=== PATIENT | female | born 1950 | race Two or more races ===

== ENCOUNTER 2016-07-23 23:57 | Emergency (ER) | payer OTHER ==
[2016-07-24] MEDS ORDERED: FAMOTIDINE 20 MG/2 ML SDV ONE (00:01)
[2016-07-24] MEDS ORDERED: predniSONE 20 MG TAB PO ONE (00:10)
[2016-07-24] MEDS ORDERED: FAMOTIDINE 20 MG/2 ML SDV IVP ONE (00:10)
[2016-07-24] MEDS ORDERED: predniSONE 20 MG TAB ONE (00:11)
--- NOTE | 2016-07-24 00:21 | EDPHY ---
H & P Stated Complaint: swelling of lower lip/tongue, throat feels constricted - Medical/Surgical History Hx Asthma: No Hx Chronic Respiratory Disease: No Hx Diabetes: No Hx Cardiac Disease: Yes Hx Renal Disease: No Hx Cirrhosis: No Hx Alcoholism: No Hx HIV/AIDS: No Hx Splenectomy or Spleen Trauma: No Other PMH: PMHx: HTN. PSHx: - Social History Smoking Status: Never smoked Time Seen by Provider: 07/24/16 00:03 HPI/ROS: Chief complaint: Swelling of the face and throat History of present illness: This is a 66-year-old female who presents to the emergency department with family for evaluation of swelling of the face and throat. Patient had the onset of symptoms earlier this evening. She feels the face and in the throat started swell up. She is feeling like she is having trouble breathing. Patient denies any specific precipitating factors. She does not have a history of severe allergic reactions. No associated signs or symptoms including no fevers, no cold symptoms, no rashes. Review of systems: A 10 point review of systems was obtained and other than described above was negative (Andrew Avery) - Physical Exam Exam: General Appearance: Alert, no distress. Eyes: Pupils equal and round no pallor or injection. ENT, Mouth: Mucous membranes moist. Mild edema to the mouth and throat. No hoarseness, no drooling, no trismus, no stridor. Respiratory: There are no retractions, lungs are clear to auscultation. Cardiovascular: Regular rate and rhythm. Gastrointestinal: Abdomen is soft and nontender, no masses, bowel sounds normal. Neurological: Alert. Strength and sensation intact and symmetrical. Skin: Edema to the face most pronounced around the lips. No rashes. Musculoskeletal: Neck is supple nontender. Extremities are symmetrical, full range of motion. Psychiatric: Patient is oriented X 3, there is no agitation. (Andrew Avery) Constitutional: Initial Vital Signs Heart Rate 74 07/24/16 00:03 Respiratory Rate 16 07/24/16 00:03 Blood Pressure 185/96 H 07/24/16 00:03 O2 Sat (%) 96 07/24/16 00:03 O2 Delivery Mode Room Air Allergies/Adverse Reactions: No Known Allergies Allergy (Unverified 08/05/15 20:07) Home Medications: Medication Instructions Recorded Amiodarone HCl 08/05/15 Atenolol 08/05/15 Losartan Potassium 08/05/15 Doxazosin Mesylate 2 mg PO DAILY #30 tablet 07/24/16 predniSONE 40 mg PO DAILY 4 Days 07/24/16 Medical Decision Making Other Provider: PHYSICIAN DOCUMENTATION: The patient was evaluated and managed by the Physician Brazer Crawler Torch. My co- signature indicates that I have reviewed this chart and I agree with the findings and plan of care as documented. I am the secondary supervising physician. 1:30 a.m.- I reassessed the patient. She is doing well, her symptoms are improving. I have advised her to stop taking her Omer inhibitor. She will be discharged from the emergency room. She would like a refill of another blood pressure medication and I am happy to provide this for her. (Marisa Brush) - Data Points Medications Given: Discontinued Medications Diphenhydramine HCl (Benadryl Injection) 50 mg IVP EDNOW ONE Stop: 07/24/16 00:11 Last Admin: 07/24/16 00:17 Dose: 50 mg Famotidine (Pepcid) 20 mg IVP EDNOW ONE Stop: 07/24/16 00:11 Last Admin: 07/24/16 00:17 Dose: 20 mg Prednisone (Prednisone) 60 mg PO EDNOW ONE Stop: 07/24/16 00:11 Last Admin: 07/24/16 00:17 Dose: 60 mg Departure - Departure Disposition: Home, Routine, Self-Care Clinical Impression: Angioedema Condition: Good Instructions: Angioedema (ED) Additional Instructions: Please discontinue the use of captopril and talk with your doctor about starting a new medication when you return home If symptoms worsen or new symptoms develop return to the emergency room for recheck Referrals: NONE *PRIMARY CARE P,. [Primary Care Provider] - As per Instructions [facility],. [Clinic] - As per Instructions Lexi Sharpe MD [Medical Doctor] - As per Instructions Prescriptions: Doxazosin Mesylate 2 mg PO DAILY #30 tablet predniSONE 40 mg PO DAILY 4 Days
[2016-07-24 01:10] VITALS: BP 153/98; PULSE 61; RESP 14; O2SAT 97
[2016-07-24 01:40] VITALS: TEMP 98.6
== END 2016-07-24 01:40 | disposition home or self-care (01) ==
DX: T78.3XXA Angioneurotic edema, initial encounter (principal); I10 Essential (primary) hypertension
CPT/HCPCS: 96374; J1200